=== PATIENT | female | born 1980 | race Caucasian/White ===

== ENCOUNTER 2016-12-09 04:50 | Inpatient (IN) | payer OTHER ==
[~2016-12-09 04:50] MED LIST: CITRIC ACID/SODIUM CITRATE 30 ML UNIT-DOSE CUP PO ONE; ELECTROLYTE-148 SOLN 500 ML IV SCH
[2016-12-09] MEDS ORDERED: ELECTROLYTE-148 SOLN 1,000 ML IV SCH (05:20)
[2016-12-09 05:40] LABS: INR 0.97 (0.82-1.09); PROTHROMBIN TIME (PATIENT) 10.7 SEC (9.98-11.88)
[2016-12-09 05:43] LABS: ACTIVATED PTT 25.9 SECONDS (26.9-34.4)
[2016-12-09 06:56] VITALS: BMI 29.7
[2016-12-09] MEDS ORDERED: TUBERCULIN PPD 5 TU/0.1ML SYRINGE (IN PATIENT USE ONLY) ID ONE (07:00)
[2016-12-09] MEDS ORDERED: ONDANSETRON 4 MG/2 ML VIAL IVPB PRN (08:32)
[2016-12-09] MEDS ORDERED: ELECTROLYTE-148 SOLN 500 ML IV ONE (09:46)
--- NOTE | 2016-12-09 09:51 | OP ---
Operative Note - Note: Operative Date: 12/09/16 Pre-Operative Diagnosis: Previous with rupture of membrane Operation: Repeat Low Transverse / Bilateral tubal ligation Findings: Large baby girl in LOT position Post-Operative Diagnosis: Same as Pre-op Surgeon: Savana Arambula Log Chipper: Jeet Sewell Anesthesia: Spinal Specimens Removed: Placenta Estimated Blood Loss (mls): 600
[2016-12-09] MEDS ORDERED: METHYLERGONOVINE MALEATE 0.2 MG/1 ML AMP IM PRN (09:58)
--- NOTE | 2016-12-09 09:58 | HP ---
Past Medical History - Admission Chief Complaint: Spontaneous rupture of membrane History of Present Illness: 36 yo @ 38.6 weeks gestation, admitted to L&D for repeat . She had 2 previous C-Sections and experienced rupture of membrane at 3 am. History Source: Patient Limitations to Obtaining History: No Limitations - Past Medical History ...: 7 ...Para: 2 ...Term: 2 ...: 0 ...Spon : 3 ...Induced : 1 ...Multiple Gestation: 0 ...EDC by [facility]: 12/17/16 - Past Surgical History Past Surgical History: Yes: Hx Myomectomy: No Hx Transabdominal Cerclage: No - Smoking History Smoking history: Never smoked Have you smoked in the past 12 months: No - Alcohol/Substance Use Hx Alcohol Use: No History of Substance Use: reports: None - Social History Usual Living Arrangement: Yes: With Spouse History of Recent Travel: No Home Medications - Allergies Allergies/Adverse Reactions: Allergies Allergy/AdvReac Type Severity Reaction Status Date / Time No Known Allergies Allergy Verified 12/09/16 07:49 - Home Medications Home Medications: Ambulatory Orders Albuterol Sulfate Inhaler - [Ventolin HFA Inhaler -] 2 inhaler IH PRN #0 inh 07/03 Montelukast Na [Singulair -] 10 mg PO DAILY #0 tablet 10/21/11 Pnv Comb.no58/Iron Bisgly/FA [ Capsule] 1 each PO DAILY #0 capsule 10/20 Family Disease History - Family Disease History Family History: Unremarkable Review of Systems - Review of Systems Constitutional: reports: No Symptoms Eyes: reports: No Symptoms HENT: reports: No Symptoms Neck: reports: No Symptoms Respiratory: reports: No Symptoms Gastrointestinal: reports: No Symptoms Genitourinary: reports: Other (Rupture of membrane) Breasts: reports: No Symptoms Reported Musculoskeletal: reports: No Symptoms Integumentary: reports: No Symptoms Neurological: reports: No Symptoms Endocrine: reports: No Symptoms Hematology/Lymphatic: reports: No Symptoms Pain Intensity: 3 Physical Exam - Maternity Vital Signs: Vital Signs Temperature 98.2 F 12/09/16 07:00 Pulse Rate 88 12/09/16 07:00 Respiratory Rate 20 12/09/16 07:00 Blood Pressure 109/61 12/09/16 07:00 O2 Sat by Pulse Oximetry (%) Constitutional: Yes: Well Nourished Eyes: Yes: Conjunctiva Clear HENT: Yes: Atraumatic Neck: Yes: Supple, Trachea Midline Cardiovascular: Yes: Regular Rate and Rhythm Lungs: Clear to auscultation - Abdominal Exam/OB Number of Fetuses: Single Presentation: Vertex - Vaginal Exam/OB Vaginal Bleediing: No Dilatation (cm): 1 Effacement (%): 60 Amniotic Membrane Status: Ruptured Station: -2 - Physical Exam ...Motor Strength: WNL Psychiatric: Yes: Alert, Oriented Problem List - Problems (1) Status post repeat low transverse section Code(s): Z98.891 - HISTORY OF UTERINE SCAR FROM PREVIOUS SURGERY Assessment/Plan IUP @ 38.6 weeks Previous Spontaneous rupture of membrane Pre op for repeat Consent signed Anesthesia to see patient
[2016-12-09] MEDS ORDERED: D5W-LR W/ 20 UNITS OXYTOCIN 1,000 ML IV SCH (10:00)
[2016-12-09] MEDS ORDERED: OXYTOCIN 20 UNITS in 0.9% NS 1,000 ML IV ONE (10:00)
[2016-12-09] MEDS: IBUPROFEN 800 MG/8 ML IJ IVPB PRN (14:26)
[2016-12-10] MEDS: IBUPROFEN 800 MG/8 ML IJ IVPB PRN (01:39)
[2016-12-10] MEDS: oxyCODONE HCL 5 MG TABLET PO PRN ×4 (04:40→20:42)
[2016-12-10] MEDS: SIMETHICONE 80 MG TAB.CHEW (FP) PO PRN ×4 (04:40→20:43)
[2016-12-10 08:09] LABS: BASOPHIL 0.5 % (0-2.0); EOSINOPHIL 1.1 % (0-4.5); MCH 29.4 pg (25.7-33.7); MCHC 33.8 g/dl (32.0-36.0); MEAN PLT VOLUME 8.4 fl (7.5-11.1); NEUTROPHILS 74.3 % (42.8-82.8); PLATELET COUNT 136 K/MM3 (134-434); RDW 14.2 % (11.6-15.6); WHITE BLOOD COUNT 11.6 K/mm3 (4.0-10.0)
[2016-12-10] MEDS: IBUPROFEN 600 MG TABLET (FP) PO PRN (08:44)
--- NOTE | 2016-12-10 09:02 | PN ---
Progress Note (short form) - Note Progress Note: ANESTHESIOLOGY POST-OP CHECK 36F s/p repeat and BTL under spinal anesthesia, POD #1. No acute complaints. Denies pain, N/V, backache, headache. Ambulating, voiding. Vital Signs Temperature 98.2 F 12/10/16 07:30 Pulse Rate 91 H 12/10/16 07:30 Respiratory Rate 20 12/10/16 07:30 Blood Pressure 133/77 12/10/16 07:30 O2 Sat by Pulse Oximetry (%) 99 12/09/16 10:45 Active Medications Bisacodyl (Dulcolax Suppository -) 10 mg RC PRN PRN PRN Reason: CONSTIPATION Diphenhydramine HCl (Benadryl Injection -) 25 mg IVPUSH Q4H PRN PRN Reason: Pruritis Diphtheria/Tetanus/Acell Pertussis (Boostrix -) 0.5 ml IM .ONCE ONE Stop: 12/10/16 14:01 Ibuprofen (Motrin -) 600 mg PO Q4H PRN PRN Reason: PAIN Last Admin: 12/10/16 08:44 Dose: 600 mg Ibuprofen (Caldolor Injection -) 800 mg IVPB Q8H PRN PRN Reason: FEVER Last Admin: 12/10/16 01:39 Dose: 800 mg Methylergonovine Maleate (Methergine Injection -) 0.2 mg IM Q4H PRN PRN Reason: Excessive Bleeding (L&D) Oxycodone HCl (Roxicodone -) 5 mg PO Q4H PRN PRN Reason: PAIN LEVEL 1-5 Last Admin: 12/10/16 08:43 Dose: 5 mg Simethicone (Mylicon -) 80 mg PO Q4H PRN PRN Reason: GAS Last Admin: 12/10/16 08:45 Dose: 80 mg Gen: Awake, alert No apparent anesthesia complications. Pain well controlled. Continue management as per primary team.
--- NOTE | 2016-12-10 09:54 | PN ---
Progress Note (SOAP) - Subjective Chief Complaint: Pt doing well - Current Medications Current Medications: Active Medications Bisacodyl (Dulcolax Suppository -) 10 mg RC PRN PRN PRN Reason: CONSTIPATION Diphenhydramine HCl (Benadryl Injection -) 25 mg IVPUSH Q4H PRN PRN Reason: Pruritis Diphtheria/Tetanus/Acell Pertussis (Boostrix -) 0.5 ml IM .ONCE ONE Stop: 12/10/16 14:01 Ibuprofen (Motrin -) 600 mg PO Q4H PRN PRN Reason: PAIN Last Admin: 12/10/16 08:44 Dose: 600 mg Ibuprofen (Caldolor Injection -) 800 mg IVPB Q8H PRN PRN Reason: FEVER Last Admin: 12/10/16 01:39 Dose: 800 mg Methylergonovine Maleate (Methergine Injection -) 0.2 mg IM Q4H PRN PRN Reason: Excessive Bleeding (L&D) Oxycodone HCl (Roxicodone -) 5 mg PO Q4H PRN PRN Reason: PAIN LEVEL 1-5 Last Admin: 12/10/16 08:43 Dose: 5 mg Simethicone (Mylicon -) 80 mg PO Q4H PRN PRN Reason: GAS Last Admin: 12/10/16 08:45 Dose: 80 mg - Objective Vital Signs: Vital Signs Temperature 98.2 F 12/10/16 07:30 Pulse Rate 91 H 12/10/16 07:30 Respiratory Rate 20 12/10/16 07:30 Blood Pressure 133/77 12/10/16 07:30 O2 Sat by Pulse Oximetry (%) 99 12/09/16 10:45 Constitutional: Yes: Well Nourished, No Distress ....Post : Yes: Uterus firm, Uterus non-tender Wound/Incision: Yes: Dressing Dry and Intact Neurological: Yes: WNL, Alert, Oriented Labs Lab Results: CBC, BMP 12/10/16 07:35 Assessment/Plan SP CS POD 1 Plan Continue present management
[2016-12-10] MEDS ORDERED: BISACODYL 10 MG SUPP.RECT RC PRN (09:58)
--- NOTE | 2016-12-10 10:35 | OP ---
DATE OF OPERATION: 12/09/2016 PREOPERATIVE DIAGNOSIS: Previous section with rupture of membranes. POSTOPERATIVE DIAGNOSIS: Previous section with rupture of membranes. PROCEDURE: Repeat low transverse section. SURGEON: Savana Arambula MD LOCAL ANNOUNCER: KATHERINE Alan ANESTHESIA: Spinal. COMPLICATIONS: None. ESTIMATED BLOOD LOSS: 600 mL. DESCRIPTION OF PROCEDURE: Patient was taken to the operating room, where spinal anesthesia was administered. Patient was then placed in lithotomy position. She was then prepped and draped in proper sterile fashion. A Pfannenstiel skin incision was made and carried down through the underlying layer of fascia. The fascia was incised in the midline and extended laterally. The superior aspect of the fascial incision was then grasped with Arlin clamps and elevated, and the rectus muscle dissected out bluntly. Attention was then turned to the inferior aspect of the fascial incision, which in a similar fashion was then grasped with the Arlin clamp, elevated, and the rectus muscle dissected out bluntly. The rectus muscle was then in the midline. The peritoneum was identified and entered sharply with the Metzenbaum scissors. This incision was extended superiorly and inferiorly with good visualization of the bladder. Then, the vesicouterine peritoneum was grasped with a pickup and entered sharply with the Metzenbaum scissors. This incision was extended laterally, and a bladder flap created digitally. The bladder blade was reinserted. Then, the lower uterine segment was incised using an 10-blade. This incision was extended laterally, and the head delivered atraumatically. Nose and mouth were suctioned, and the cord clamped, and cut. The infant was handed to the awaiting shift superintendent caustic cresylate. Then, the placenta was removed manually. The uterus exteriorized and cleared of all clots and debris. The uterine incision was then repaired using 0 Biosyn in a running locked fashion. The 2nd layer of the same suture was used as a means to provide excellent hemostasis. Then, using the Hernandez, the right tube was grabbed with the [place], and a free tie was used to tie a 3-cm segment of the tube. A 2nd tie was used as a means to provide excellent hemostasis. Then, using Metzenbaum scissors, the portion of the tube was then cut, and the tip of the tube was cauterized using the cautery. The same procedure was performed on the left tube. Then, the pelvis was then completely irrigated. The uterus was returned to the abdomen. The peritoneum was closed using 2-0 Biosyn, and the fascia was reapproximated using 0 Vicryl in a running fashion. The skin was closed in a subcuticular fashion using 3-0 Vicryl. Patient tolerated the procedure well. Patient was then taken to the PACU in stable condition. PATHOLOGY: Placenta and portion of right and left tubes. SAVANA ARAMBULA M.D. MCKENZIE/[id number]
[2016-12-10] MEDS ORDERED: DIPHTH,PERTUSS(ACELL),TET 0.5 ML DISP.SYRIN IM ONE (14:00)
[2016-12-10] MEDS: ACETAMINOPHEN 325 MG TABLET (FP) PO PRN ×2 (14:24→20:43)
[2016-12-11] MEDS: oxyCODONE HCL 5 MG TABLET PO PRN ×6 (01:48→18:45)
[2016-12-11] MEDS: SIMETHICONE 80 MG TAB.CHEW (FP) PO PRN ×5 (01:49→18:44)
[2016-12-11] MEDS: ACETAMINOPHEN 325 MG TABLET (FP) PO PRN ×3 (01:49→10:07)
--- NOTE | 2016-12-11 07:01 | PN ---
Post Progress Note - Subjective Subjective: Pt seen/evaluated and doing well. Having incisional pain otherwise no complaints. Ambulating, voiding, passing flatus and tolerating diet. Type of Delivery: Repeat C/S Vital Signs: Vital Signs Temperature 98.6 F 12/10/16 22:00 Pulse Rate 86 12/10/16 22:00 Respiratory Rate 20 12/10/16 22:00 Blood Pressure 108/53 12/10/16 22:00 O2 Sat by Pulse Oximetry (%) 99 12/09/16 10:45 Breast Exam: Yes: Soft Uterus: Yes: Fundus Firm, Fundus below umbilicus Incision: Yes: Sutures intact (with in tact steri strips) Abdomen/GI: Yes: Abdomen soft, Passing flatus, Tolerating PO. No: Abdominal Distention Lochia: Yes: Rubra Lochia, amount: Small Extremities: Yes: Calves non-tender. No: Edema Perineum: Yes: Intact Activity: Ambulating - Labs Labs: CBC WBC 11.6 K/mm3 (4.0-10.0) H 12/10/16 07:35 RBC 3.86 M/mm3 (3.60-5.2) 12/10/16 07:35 Hgb 11.4 GM/dL (10.7-15.3) 12/10/16 07:35 Hct 33.6 % (32.4-45.2) 12/10/16 07:35 MCV 87.0 fl (80-96) 12/10/16 07:35 MCHC 33.8 g/dl (32.0-36.0) 12/10/16 07:35 RDW 14.2 % (11.6-15.6) 12/10/16 07:35 Plt Count 136 K/MM3 (134-434) 12/10/16 07:35 MPV 8.4 fl (7.5-11.1) 12/10/16 07:35 Neutrophils % 74.3 % (42.8-82.8) 12/10/16 07:35 Lymphocytes % 17.1 % (8-40) 12/10/16 07:35 Monocytes % 7.0 % (3.8-10.2) 12/10/16 07:35 Eosinophils % 1.1 % (0-4.5) D 12/10/16 07:35 Basophils % 0.5 % (0-2.0) 12/10/16 07:35 Problem List - Problems (1) Status post repeat low transverse section Code(s): Z98.891 - HISTORY OF UTERINE SCAR FROM PREVIOUS SURGERY (2) section Code(s): Z98.89 - OTHER SPECIFIED POSTPROCEDURAL STATES * DO NOT USE * Assessment/Plan 36 y/o POD#2 s/p repeat LTCS and doing well - AFVSS - Hgb 11.4 post op, stable - regular diet, PO pain meds, ambulation - routine care
[2016-12-11] MEDS: IBUPROFEN 600 MG TABLET (FP) PO PRN ×3 (10:08→18:44)
--- NOTE | 2016-12-11 16:20 | PATH ---
Surgical Pathology Report Patient Name: CHRISTIANO ANAYA Med. Rec. 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 Specimen(s) Received A: RIGHT FALLOPIAN TUBE B: LEFT FALLOPIAN TUBE Clinical History , 39 weeks Repeat c/section and BTL Final Diagnosis A. PORTION OF FALLOPIAN TUBE, RIGHT, LIGATION: SEGMENT OF FALLOPIAN TUBE WITH COMPLETE CROSS SECTION. B. PORTION OF FALLOPIAN TUBE, LEFT, LIGATION: SEGMENT OF FALLOPIAN TUBE WITH COMPLETE CROSS SECTION. Electronically Signed Braulio Chilel M.D. Gross Description A. Received in formalin labeled "right portion of tube" is a 2 cm in length portion of fallopian tube. No fimbriae are present. The outer surface is tejada-pink and smooth. Sectioning reveals an unremarkable lumen. Intellectual Property Counsel sections are submitted in one cassette. B. Received in formalin labeled "left portion of tube" is a 1.5 cm in length portion of fallopian tube. No fimbria are present. The outer surface is tejada-pink and smooth. Sectioning reveals an unremarkable lumen. Intellectual Property Counsel sections are submitted in one cassette. /12/10/2016 saudi12/10/2016
[2016-12-11] MEDS ORDERED: DIPHTH,PERTUSS(ACELL),TET 0.5 ML DISP.SYRIN IM ONE (17:15)
[2016-12-11] MEDS ORDERED: SENNOSIDES/DOCUSATE COMBO (SENNA PLUS) TABLET (UD) PO PRN (21:37)
[2016-12-12] MEDS: oxyCODONE HCL 5 MG TABLET PO PRN ×3 (02:20→11:29)
[2016-12-12] MEDS: SIMETHICONE 80 MG TAB.CHEW (FP) PO PRN ×3 (02:20→11:29)
[2016-12-12] MEDS: ACETAMINOPHEN 325 MG TABLET (FP) PO PRN ×2 (02:20→06:24)
[2016-12-12 08:29] LABS: BASOPHIL 0.6 % (0-2.0); EOSINOPHIL 4.5 % (0-4.5); MCH 29.4 pg (25.7-33.7); MEAN CELL VOLUME 86.3 fl (80-96); MEAN PLT VOLUME 8.2 fl (7.5-11.1); NEUTROPHILS 61.1 % (42.8-82.8); PLATELET COUNT 164 K/MM3 (134-434); RDW 14.2 % (11.6-15.6); WHITE BLOOD COUNT 9.8 K/mm3 (4.0-10.0)
[2016-12-12 09:56] VITALS: BP 132/75; PULSE 75; TEMP 97.8
[2016-12-12] MEDS: IBUPROFEN 600 MG TABLET (FP) PO PRN (11:29)
== END 2016-12-12 12:55 | disposition home or self-care (01) | DRG 766 ==
LOC: JLDR 04:50 → J3W 11:53
PROVIDERS: ADMIT Obstetrics & Gynecology; ATTEND Obstetrics & Gynecology
PROC: 10D00Z1 Extraction of Products of Conception, Low, Open Approach (ICD-10-PCS; principal; 2016-12-09)
PROC: 0UL70ZZ Occlusion of Bilateral Fallopian Tubes, Open Approach (ICD-10-PCS; 2016-12-09)
DX: O34.211 Maternal care for low transverse scar from previous cesarean delivery (principal); Z30.2 Encounter for sterilization; Z3A.38 38 weeks gestation of pregnancy; Z37.0 Single live birth
CPT/HCPCS: 36415; 85025; 85610; 85730; 88302-TC; 90715